=== PATIENT | male | born 1945 | race Caucasian/White ===

== ENCOUNTER 2017-03-05 10:41 | Emergency (ER) | payer OTHER ==
[2017-03-05] MEDS ORDERED: OXYMETAZOLINE 30 ML NASAL SPRAY EACHNARE ONE (11:09)
[2017-03-05] MEDS ORDERED: SILVER NITRATE APPLICATOR 1 APPL TP ONE (11:09)
[2017-03-05] MEDS ORDERED: COCAINE HCL 4% 4 ML BTL TP ONE (11:21)
--- NOTE | 2017-03-05 11:23 | EDPHY ---
H & P Stated Complaint: epistaxis right nare aprox 45 min [employer] of guards Time Seen by Provider: 03/05/17 11:14 HPI/ROS: CHIEF COMPLAINT: Epistaxis HISTORY OF PRESENT ILLNESS: Patient is a 71-year-old man who comes to the emergency department complaining of epistaxis in his right nares. It began about an hour ago. He does not get frequent nosebleeds. He is not on any blood thinners. He denies any trauma. He states that he blew his nose hard and that is when it began. He denies fevers or recent illness. REVIEW OF SYSTEMS: Constitutional: denies: chills, fever, recent illness, recent injury EENTM: see HPI Respiratory: denies: cough, shortness of breath Cardiac: denies: chest pain, irregular heart rate, lightheadedness, palpitations Gastrointestinal/Abdominal: denies: abdominal pain, diarrhea, nausea, vomiting, blood streaked stools Genitourinary: denies: dysuria, frequency, hematuria, pain Musculoskeletal: denies: joint pain, muscle pain Skin: denies: lesions, rash, jaundice, bruising Neurological: denies: headache, numbness, paresthesia, tingling, dizziness, weakness Hematologic/Lymphatic: denies: blood clots, easy bleeding, easy bruising Immunologic/allergic: denies: HIV/AIDS, transplant EXAM: GENERAL: Well-appearing, well-nourished and in no acute distress. HEAD: Atraumatic, normocephalic. EYES: Pupils equal round and reactive to light, extraocular movements intact, sclera anicteric, conjunctiva are normal. ENT: Right nares with small punctate bleed on anterior nasal septum. Bleeding controlled after Afrin and nasal clamp. NECK: Normal range of motion, supple without lymphadenopathy or JVD. LUNGS: Breath sounds clear to auscultation bilaterally and equal. No wheezes rales or rhonchi. HEART: Regular rate and rhythm without murmurs, rubs or gallops. ABDOMEN: Soft, nontender, normoactive bowel sounds. No guarding, no rebound. No masses appreciated. BACK: No CVA tenderness, no spinal tenderness, step-offs or deformities EXTREMITIES: Normal range of motion, no pitting or edema. No clubbing or cyanosis. NEUROLOGICAL: Cranial nerves II through XII grossly intact. Normal speech, normal gait. 5/5 strength, normal movement in all extremities, normal sensation PSYCH: Normal mood, normal affect. SKIN: Warm, dry, normal turgor, no visible rashes or lesions. Source: Patient Exam Limitations: No limitations - Personal History Current Tetanus Diphtheria and Acellular Pertussis (TDAP): Yes - Medical/Surgical History Hx Asthma: No Hx Chronic Respiratory Disease: No Hx Diabetes: No Hx Cardiac Disease: No Hx Renal Disease: No Hx Cirrhosis: No Hx Alcoholism: No Hx HIV/AIDS: No Hx Splenectomy or Spleen Trauma: No Other PMH: benign arrythmia, GERD - Family History Significant Family History: No pertinent family hx - Social History Smoking Status: Never smoked Alcohol Use: Sober Drug Use: None Constitutional: Initial Vital Signs Temperature (C) 36.6 C 03/05/17 10:56 Heart Rate 63 03/05/17 10:56 Respiratory Rate 16 03/05/17 10:56 Blood Pressure 156/81 H 03/05/17 10:56 O2 Sat (%) 95 03/05/17 10:56 O2 Delivery Mode Room Air Allergies/Adverse Reactions: No Known Allergies Allergy (Unverified 09/15/15 13:27) Home Medications: Medication Instructions Recorded Nexium 03/05/17 Toprol Xl 100 mg (*) 03/05/17 Medical Decision Making Procedures: Nosebleed: Patient's nose cleared by blowing then instilled with Afrin and a clamp placed. His right anterior septum was then cauterized with silver nitrate after topical application of cocaine liquid. The patient tolerated the procedure well. Bleeding is controlled. ED Course/Re-evaluation: Patient's bleeding had practically stopped on my examination. Was able to cauterize the location. The patient tolerated the procedure well. He is happy and eager to go home. He declines further workup or testing at this time. He denies lightheadedness or dizziness. He denies trauma. - Data Points Medications Given: Discontinued Medications Cocaine HCl (Cocaine Hcl) 1 ramone TP EDNOW ONE Stop: 03/05/17 11:22 Last Admin: 03/05/17 12:11 Dose: 1 ramone Oxymetazoline HCl (Afrin Nasal [place]) 2 sprays EACHNARE EDNOW ONE Stop: 03/05/17 11:10 Last Admin: 03/05/17 12:12 Dose: 2 spray Silver Nitrate/Potassium Nitrate (Silver Nitrate Applicator) 1 each TP EDNOW ONE Stop: 03/05/17 11:10 Last Admin: 03/05/17 12:12 Dose: 1 each Departure - Departure Disposition: Home, Routine, Self-Care Clinical Impression: Acute anterior epistaxis Condition: Fair Instructions: Nosebleed (ED) Referrals: Shane Morgan [Primary Care Provider] - As per Instructions
[2017-03-05 12:22] VITALS: BP 148/72; PULSE 65; RESP 14; TEMP 97.5; O2SAT 99
== END 2017-03-05 12:21 | disposition home or self-care (01) ==
PROC: 095KXZZ Destruction of Nasal Mucosa and Soft Tissue, External Approach (ICD-10-PCS; principal; 2017-03-05)
DX: R04.0 Epistaxis (principal)

== ENCOUNTER → 2017-04-26 | Outpatient (CLI) | payer OTHER | LOC: FIMAGING 08:40 | PROVIDERS: ATTEND Internal Medicine Endocrinology, Diabetes & Metabolism | DX: M89.9 Disorder of bone, unspecified (principal) ==